=== PATIENT | male | born 1965 | race African-American/Black ===

== ENCOUNTER 2017-02-21 21:37 | Inpatient (IN) | payer OTHER ==
--- NOTE | ~2017-02-21 | PN ---
Unit #: [id number] #: [id number] Patient: GIRISH HOLDEN [id number] [facility] [address] [place] [address] [id number] MR#: [id number] NAME: GIRISH HOLDEN ROOM: [facility] Age: 51 Sex: M Admission Date: 02/21/2017 : 1965 Attending Physician: Hernandez Dan M.D. Admitting Physician: Hernandez Dan M.D. Primary Care Physician: Chucho Ceron PROGRESS NOTES DATE 02/22/2017 DISCUSSION Girish is a 51-year-old male seen on 02/22/2017. The patient interviewed, chart reviewed. Obtained information from nursing staff. The patient's vital signs 98.4, 72, 18, 158/103. Height 5 feet 11 inches. The patient still reporting anxious, nervous, tremors, withdrawn, isolative. Complete review of systems unremarkable. MENTAL STATUS EXAMINATION General appearance, the patient dressed casually in hospital attire. Attention span and concentration fair. Oriented to place and person. Mood and affect sad, dysphoric. Speech monotone. Thought process concrete. The patient denied any thoughts of harming self or others but guarded. Recent and remote memory poor. Insight and judgement poor. DIAGNOSES 1. Cocaine use disorder. 2. Severe alcohol use disorder. 3. Severe mood disorder NOS. ASSESSMENT/PLAN Advise to continue with current medication and therapeutic protocol. We will monitor response to medication and make further adjustment of medication. Dictated by... Miguel Phipps/anahy TD: 02/24/2017 04:26 JOB #: [id number] Unit #: [id number] #: [id number] Patient: GIRISH HOLDEN PROGRESS NOTES Page 1 of 1 X Hernandez Dan MD X PROGRESS NOTE
--- NOTE | ~2017-02-21 | DS ---
Unit #: [id number] #: [id number] Patient: RENE HOLDEN [id number] [facility] [address] [place] [address] [id number] MR#: [id number] NAME: RENE HOLDEN ROOM: [facility] Age: 51 Sex: M Admission Date: 02/21/2017 : 1965 Discharge Date: 02/24/2017 Attending Physician: Hernandez Dan M.D. Primary Care Physician: Nancy Soto A.P.R.N. DISCHARGE SUMMARY REASON FOR ADMISSION Detox, depression. DIAGNOSTIC STUDIES LABORATORY RESULTS: Remarkable for urine drug screen positive for cocaine. HOSPITAL COURSE The patient was admitted to inpatient unit on 02/21/2017 and discharged on 02/24/2017. The patient was treated on the inpatient unit with group therapy, individual therapy, medication management, detox protocol, and detox monitoring. The patient responded well with the above modalities of treatment. Subsequently, the patient was discharged with a plan to follow up in outpatient program. DISCHARGE MEDICATIONS Trazodone 100 mg at bedtime for sleep, BuSpar 15 mg t.i.d. for anxiety, Zoloft 100 mg daily for depression, Neurontin 300 mg t.i.d. for anxiety, Atarax 50 mg once daily for EPS symptom. DISCHARGE DIAGNOSES Psychiatric: 1. Cocaine use disorder, severe, F14.20. 2. Alcohol use disorder, severe, F10.20. 3. Major depressive disorder, recurrent, severe. Secondary diagnosis: Deferred. Medical diagnosis: Hypertension. Stressors: Psychosocial stressors. DISCHARGE INSTRUCTIONS The patient to follow up in outpatient clinic as per web content & social media manager. CONDITION ON DISCHARGE The patient was pleasant and cooperative. Denied any psychotic symptom or any suicidal ideation. PROGNOSIS Guarded. DIET AND ACTIVITY As tolerated. Unit #: [id number] #: [id number] Patient: RENE HOLDEN Dictated by... Miguel Phipps/vincent TD: 02/26/2017 05:10 JOB #: [id number] DISCHARGE SUMMARY Page 1 of 1 X Hernandez Dan MD X DISCHARGE SUMMARY
--- NOTE | ~2017-02-21 | HP ---
Unit #: [id number] #: [id number] Patient: GIRISH HOLDEN [id number] [facility] [address] [place] [address] [id number] MR#: [id number] NAME: GIRISH HOLDEN ROOM: [facility] Age: 51 Sex: M Admission Date: 02/21/2017 : 1965 Attending Physician: Hernandez Dan M.D. Admitting Physician: Hernandez Dan M.D. Primary Care Physician: Nancy Soto A.P.R.N. HISTORY AND PHYSICAL HISTORY OF PRESENT ILLNESS Girish is a 51-year-old male admitted on 02/22/2017 to [facility] for detox from alcohol and cocaine. PAST MEDICAL HISTORY Hypertension and sciatic nerve pain. PAST SURGICAL HISTORY None documented. SOCIAL HISTORY Smokes one pack of cigarettes daily and reports binge alcohol use and daily cocaine use. He is currently single and living alone. FAMILY HISTORY Noncontributory. REVIEW OF SYSTEMS CONSTITUTIONAL: No fever or chills. HEENT: Denies any sore throat, ear pain or runny nose. CARDIOVASCULAR: Denies chest pain, irregular heart rhythm or palpitations. CHEST: Denies shortness of breath or cough. No hemoptysis. GASTROINTESTINAL: Denies nausea, vomiting, diarrhea or chronic constipation. ENDOCRINE: Denies history of increased thirst or urination. No recent significant weight loss or gain. GENITOURINARY: Denies dysuria, frequency, or hematuria. SKIN: Denies any rashes. HEMATOLOGIC: Denies history of increased bleeding or bruising. MUSCULOSKELETAL: Denies any hot, swollen joints. No generalized muscle pain. NEUROLOGIC: Denies problems with vision or speech. No frequent, severe headaches. No numbness, tingling or weakness in any extremities. Denies loss of bladder or bowel control. CURRENT MEDICATIONS 1. Hydroxyzine 2. Hydrochlorothiazide 3. Metoprolol 4. BuSpar 5. Amlodipine Unit #: [id number] #: [id number] Patient: GIRISH HOLDEN 6. Zoloft 7. Gabapentin ALLERGIES Seafood PHYSICAL EXAMINATION GENERAL: Alert, oriented, in no acute distress. VITAL SIGNS: Blood pressure 143/97, heart rate 86, respirations 16. HEIGHT: 5 foot 11 inches. WEIGHT: 175 pounds. SKIN: Warm and dry without rash or lesion. HEENT: Normocephalic. TMs not viewed. Oral and nasal passages clear. Conjunctivae clear. PERRLA. EOMs intact. NECK: Supple without lymphadenopathy or thyromegaly. HEART: Regular rate and rhythm without murmur. LUNGS: Clear. ABDOMEN: Soft, nontender, without masses or hepatosplenomegaly. : Not done. EXTREMITIES: No evidence of cyanosis, clubbing or edema. Moves all without focal deficit. NEUROLOGICAL: Grossly within normal limits. Cranial Nerves: II: Visual seth are intact. III, IV AND : Extraocular movements are intact. Pupils are equal, round and reactive to light. V: Facial sensation is grossly normal. VII: Facial movements and expression are normal. VIII: Auditory acuity grossly intact. IX, X: Uvula is midline. Phonation is normal. XI: Patient shrugs shoulders and turns head normally. XII: Tongue protrudes in the midline. Sensory and Motor Function: Sensory and motor sensation is grossly normal. Motor: moves all extremities well. Coordination: Gait is normal. Deep Tendon Reflexes: Intact. IMPRESSION 1. Psychiatric admission. 2. Hypertension. 3. Sciatic nerve pain. RECOMMENDATIONS Psychiatric, per psychiatrist. MEDICAL: I see no contraindications to participating in facility's activities. MEDICAL PROGNOSIS Good. MEDICAL CONDITION Stable. Dictated by... Lisa BeckPDeborah Unit #: [id number] #: [id number] Patient: GIRISH HOLDEN MISSY/anahy TD: 02/22/2017 19:21 JOB #: [id number] HISTORY AND PHYSICAL Page 1 of 1 X OSCAR GREENE APRN HISTORY AND PHYSICAL
--- NOTE | ~2017-02-21 | PN ---
Unit #: [id number] #: [id number] Patient: GIRISH HOLDEN [id number] [facility] [address] [place] [address] [id number] MR#: [id number] NAME: GIRISH HOLDEN ROOM: [facility] Age: 51 Sex: M Admission Date: 02/21/2017 : 1965 Attending Physician: Hernandez Dan M.D. Admitting Physician: Hernandez Dan M.D. Primary Care Physician: Chucho Ceron PROGRESS NOTES DATE OF SERVICE: 02/23/2017 DISCUSSION Girish Holden is a 51-year-old male. The patient interviewed, chart reviewed, and obtained information from nursing staff. The patient was compliant and cooperative, isolative, guarded, able to maintain safe behavior. Vital signs; temperature 98.4, pulse 82, blood pressure 144/89. The patient currently having withdrawal symptom, but mood sad and dysphoric, and tolerating medication fairly well. REVIEW OF SYSTEMS Complete review of systems is unremarkable. MENTAL STATUS EXAMINATION General appearance, the patient dressed casually. Attention span and concentration, fair. Oriented in place and person. Mood and affect were sad and dysphoric. Speech, monotone. Thought process, concrete. The patient denied any thoughts of harming self or others or any psychotic symptom. Recent and remote memory, poor. Insight and judgment, poor. DIAGNOSIS Mood disorder, not otherwise specified. ASSESSMENT/PLAN Advised to continue with current medication and therapeutic protocol. We will monitor response to medication and make further adjustment of medication if needed. Dictated by... Miguel Phipps/vincent TD: 02/25/2017 06:11 JOB #: [id number] Unit #: [id number] #: [id number] Patient: GIRISH HOLDEN PROGRESS NOTES Page 1 of 1 X Hernandez Dan MD PROGRESS NOTE
--- NOTE | ~2017-02-21 | PA ---
Unit #: [id number] #: [id number] Patient: GIRISH TOLEDO [id number] [facility] [address] [place] [address] [id number] I MR#: [id number] NAME: GIRISH TOLEDO ROOM: [facility] Age: 51 Sex: M Admission Date: 02/21/2017 : 1965 Date of Assessment: Attending Physician: Hernandez Dan M.D. Admitting Physician: Hernandez Dan M.D. Primary Care Physician: Nancy Soto A.P.R.N. PSYCHIATRIC ASSESSMENT INFORMANTS The patient reliability, fair informant and chart reliability, good. CHIEF COMPLAINT Detox and depression. HISTORY OF PRESENT ILLNESS Mr. Girish Toledo is a 51-year-old male, seen on . The patient presented with the above-mentioned complaint. The patient has a history of inpatient treatment at [facility], and [facility] for substance abuse and anxiety. The patient reported smoking 200 to 300 dollars worth of crack cocaine and drinking fifth of whiskey or bourbon. The patient reported last use of crack cocaine was at 4 this morning and last drink of bourbon was 9 a.m. The patient reported history of depression and anxiety. The patient also reported taking Klonopin for anxiety. The patient reported his psychiatrist has taken him off from the medication. 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 The patient reports that the longest period of sobriety was 5 years. Denied any suicidal or homicidal ideation, but feeling sad, depressed, and anxious. Denied any psychotic symptom. Needing inpatient admission at this time for psychiatric stabilization. PAST PSYCHIATRIC HISTORY Remarkable for history of previous treatment at [facility], and [facility] in the past. FAMILY HISTORY AND SOCIAL HISTORY The patient's family history is remarkable for history of alcohol abuse in mother. No history of any legal charges or abuse, but in the past history of first-degree assault charge. MEDICAL HISTORY Remarkable for hypertension. Musculoskeletal; muscle strength and tone, no atrophy or abnormal movement. Gait normal. MEDICATION HISTORY None. ALLERGIES No known drug allergies. SUBSTANCE ABUSE HISTORY Unit #: [id number] #: [id number] Patient: GIRISH TOLEDO The patient reported alcohol use, age of onset 17 and crack cocaine, age of onset 17. The patient reported currently having nervousness, sleep problem, shaking, depressed mood, and history of blackout. No history of any HIV or hepatitis. History of withdrawal symptoms. No history of any IV drug use. REVIEW OF SYSTEMS HEENT: Eyes, clear. Ears, nose, mouth, and throat; clear. CARDIOVASCULAR: Unremarkable. RESPIRATORY: Unremarkable. GI: Unremarkable. : Unremarkable. SKIN: Unremarkable. LYMPH NODE: Unremarkable. NEUROLOGIC: Unremarkable. ENDOCRINE: Unremarkable. HEMATOLOGIC: Unremarkable. ALLERGIC/IMMUNOLOGIC: Unremarkable. MUSCULOSKELETAL: Muscle strength and tone, no atrophy or abnormal movement. Gait normal. MENTAL STATUS EXAMINATION CONSTITUTIONAL: Measurement of vital signs; temperature 98.4, heart rate 75, respiratory rate 18, oxygen saturation 100%, blood pressure 141/99, height 5 feet 11 inches, and weight 175 pounds. GENERAL APPEARANCE: The patient dressed casually. The patient's hygiene and grooming, fair. The patient did not show any facial deformity. MUSCULOSKELETAL: Please see above. PSYCHIATRIC EXAMINATION Description of speech; regular rate, normal volume, normal articulation, coherent, and spontaneous. Description of thought process, goal directed. Description of association, intact. Description of abnormal psychotic thinking; the patient denied any hallucinations or delusions, but mood lability and substance abuse. Description of the patient's judgment: Concerning everyday activity, poor. Social situation, poor. Concerning psychiatric condition, poor. Complete mental status examination; oriented in time, place, and person. Recent and remote memory, fair. Attention span and concentration, fair. Language, able to name object and repeat phrases. Fund of knowledge, aware of current event and passive vocabulary intact. Mood and affect, sad and dysphoric. Insight and judgment, fair to poor. ASSETS AND LIABILITIES Assets, the patient is articulate and able to take care of his ADL. Liability, history of depression and substance abuse. ADMITTING DIAGNOSES Psychiatric: Cocaine use disorder, severe, F14.20; alcohol use disorder, severe, F10.20; and mood disorder, not otherwise specified, F32.9. Secondary diagnosis: Deferred. Medical diagnosis: Hypertension. Stressors: Psychosocial stressors. Unit #: [id number] #: [id number] Patient: GIRISH TOLEDO PSYCHIATRIC PLAN AND TREATMENT GOAL AND DISCHARGE PLAN 1. Advised to admit the patient on the inpatient unit. Provide safe, supportive, and structured environment. 2. Ordered labs; CBC, CMP, UA, and UDS. 3. Detox precaution and detox protocol. The patient to attend all the programing. If needed, consider medication for depression. The patient to attend all the programing, group therapy, individual therapy, chemical dependency group, and family therapy. TREATMENT GOAL To attain euthymic mood, gain insight into his problem, and learn coping skills. DISCHARGE PLAN Plan to stabilize the patient and consider followup in outpatient program. ESTIMATED LENGTH OF STAY 3 to 5 days. Dictated by... Hernandez Dan M.D. ELVIA/vincent TD: 02/22/2017 18:07 JOB #: [id number] PSYCHIATRIC ASSESSMENT Page 1 of 1 X Hernandez Dan MD X PSYCHIATRIC ASSESSMENT
[~2017-02-21 21:37] MED LIST: FLEXERIL10 MG PO; HYDROCHLOROTH12.5 M1; KLONOPIN1 MG PO; NORVASC10 MG PO; ROBAXIN 750750 M1 PO; TOPROL XL 50 MG50 MG PO; VOLTAREN75 MG PO
[2017-02-22 11:17] LABS: URINE SOURCE CLEAN CATCH
[2017-02-22 12:00] LABS: ALBUMIN SERUM 3.2 g/dL (3.5-5.0); BILIRUBIN,TOTAL 0.4 mg/dL (0.2-2.0); BUN/CREATININE RATIO 18.75; CALCIUM SERUM 8.7 mg/dL (8.4-10.2); CREATININE SERUM 0.8 mg/dL (0.6-1.4); GLOM FILT RATE Estimated 120.8 mL/min (>60); POTASSIUM 3.8 mmol/L (3.5-5.1); PROTEIN TOTAL SERUM 6.4 g/dL (6.0-8.3)
[2017-02-22 12:09] LABS: URINE APPEARANCE CLEAR; URINE BILIRUBIN NEG (NEG); URINE BLOOD NEG (NEG); URINE COLOR YELLOW; URINE GLUCOSE NEG (NEG); URINE KETONE NEG (NEG); URINE LEUKOCYTE ESTERASE NEG (NEG); URINE NITRATE NEG (NEG); URINE PROTEIN NEG (NEG); URINE SPECIFIC GRAVITY 1.003 (1.003-1.035); URINE UROBILINOGEN 0.2 MG/DL (NEG)
[2017-02-22 12:19] LABS: AMPHETAMINE NEG (NEG); BARBITURATES NEG (NEG); BENZODIAZEPINES NEG (NEG); COCAINE POS (NEG); MARIJUANA NEG (NEG); OPIATES NEG (NEG); TRICYCLIC ANTIDEPRESSANTS NEG (NEG); U METHADONE NEG (NEG)
[2017-02-23 11:14] LABS: BASOPHIL% 0.4 % (0-2.5); EOSINOPHIL# 0.2 X10e3 (0-0.7); EOSINOPHIL% 4.1 % (0.0-7.0); HEMATOCRIT 41.8 % (38.0-50.0); HEMOGLOBIN 13.7 gm/dL (13.0-16.0); LYMPHOCYTE# 1.3 X10e3 (1.0-3.5); LYMPHOCYTE% 28.8 % (17.0-45.0); MEAN CELL VOLUME 85.1 FL (83-96); MEAN CORPUSCULAR HEMOGLOBIN 27.8 PG (28-34); MEAN CORPUSCULAR HGB CONC 32.6 g/dL (30-36); MEAN PLATELET VOLUME 7.6 FL (6.5-11.5); MONOCYTE# 0.5 X10e3 (0-1.0); MONOCYTE% 11.1 % (3.0-12.0); NEUTROPHIL# 2.4 X10e3 (1.5-7.1); NEUTROPHIL% 55.6 % (40-75); PLATELET COUNT 227 X10e3 (140-420); RED BLOOD COUNT 4.92 X10e (3.90-5.60); RED CELL DISTRIBUTION WIDTH 15.4 % (11.0-15.5); WHITE BLOOD COUNT 4.4 X10e3 (4.0-10.5)
[2017-02-23 11:30] LABS: DIFF IND NO
[2017-02-23 11:59] LABS: THYROID STIMULATING HORMONE 0.56 uIU/ml (0.34-5.60)
[2017-02-23 12:06] LABS: FREE THYROXIN (T4) 0.83 ng/dL (0.58-1.64)
== END 2017-02-24 11:35 | disposition home or self-care (01) | DRG 897 ==
LOC: P1E 21:37
PROVIDERS: Psychiatry & Neurology Psychiatry
PROC: HZ2ZZZZ Detoxification Services for Substance Abuse Treatment (ICD-10-PCS; principal; 2017-02-21)
DX: F14.20 Cocaine dependence, uncomplicated (principal); F33.2 Major depressive disorder, recurrent severe without psychotic features; F10.20 Alcohol dependence, uncomplicated; F39 Unspecified mood [affective] disorder; F41.9 Anxiety disorder, unspecified; F17.210 Nicotine dependence, cigarettes, uncomplicated; I10 Essential (primary) hypertension
CPT/HCPCS: 80053; 80307; 81003; 84439; 84443; 85025; 86592

== ENCOUNTER 2017-03-12 17:24 | Inpatient (IN) | payer OTHER ==
--- NOTE | ~2017-03-12 | PA ---
Unit #: [id number] #: [id number] Patient: RENE HOLDEN [id number] [facility] [address] [place] [address] [id number] MR#: [id number] NAME: RENE HOLDEN ROOM: 84 Age: 51 Sex: M Admission Date: 03/12/2017 : 1965 Date of Assessment: Attending Physician: Hernandez Dan M.D. Admitting Physician: Hernandez Dan M.D. Primary Care Physician: Nancy Soto A.P.R.N. PSYCHIATRIC ASSESSMENT INFORMANTS The patient reliability, fair informant and chart reliability, good. CHIEF COMPLAINT Substance abuse and depression. HISTORY OF PRESENT ILLNESS Mr. George is a 51-year-old male, seen on with the above-mentioned complaint. The patient presented with using 1 g of crack cocaine since 10/2016. The patient reported one gallon of beer and whiskey daily since 10/2016. The patient reported high anxiety, irritability, sleep problem, and nervousness. The patient reported "I cannot keep going like this, it is getting deeper." Denied any suicidal or homicidal ideation. Denied any psychotic symptom, but reported feeling sad and depressed. The patient reported using alcohol, age of onset 17; marijuana, age of onset 17; and amphetamine, age of onset 38. The patient reported longest period of sobriety 5 years. The patient reported last period of sobriety in 08/2016. The patient denied any blackouts or IV drug use or HIV or hepatitis. Reported withdrawal symptoms such as tremors, sleeping problem, poor concentration, poor appetite, nervousness, and irritability. The patient needing inpatient admission at this time for psychiatric stabilization. PAST PSYCHIATRIC HISTORY Remarkable for history of [facility] treatment in 01/2017. FAMILY HISTORY AND SOCIAL HISTORY The patient's family history is remarkable for history of alcohol abuse in mother. No history of any legal problems or charges or abuse. MEDICAL HISTORY Remarkable for history of hypertension. Musculoskeletal; muscle strength and tone, no atrophy or abnormal movement. Gait normal. MEDICATION HISTORY None. ALLERGIES No known drug allergies. SUBSTANCE ABUSE HISTORY Please see above. Unit #: [id number] #: [id number] Patient: RENE HOLDEN REVIEW OF SYSTEMS HEENT: Eyes, clear. Ears, nose, mouth, and throat; clear. CARDIOVASCULAR: Unremarkable. RESPIRATORY: Unremarkable. GI: Unremarkable. : Unremarkable. SKIN: Unremarkable. LYMPH NODE: Unremarkable. NEUROLOGIC: Unremarkable. ENDOCRINE: Unremarkable. HEMATOLOGIC: Unremarkable. ALLERGIC/IMMUNOLOGIC: Unremarkable. MUSCULOSKELETAL: Muscle strength and tone, no atrophy or abnormal movement. Gait normal. MENTAL STATUS EXAMINATION CONSTITUTIONAL: Measurement of vital signs; temperature 98.3, heart rate 62, respiratory rate 20, 100 oxygen saturation, and blood pressure 129/92. Height 5 feet 11 inches and weight 175 pounds. GENERAL APPEARANCE: The patient dressed casually. The patient did not show any facial deformity. MUSCULOSKELETAL: Please see above. PSYCHIATRIC EXAMINATION Description of speech; regular rate, normal volume, normal articulation, coherent, and spontaneous. Description of thought process, goal directed. Description of association, intact. Description of abnormal psychotic thinking; the patient denied any hallucinations or delusions, but sad, depressed, and substance abuse. Description of the patient's judgment: Concerning everyday activity, poor. Social situation, poor. Concerning psychiatric condition, poor. Complete mental status examination; oriented in time, place, and person. Recent and remote memory, fair. Attention span and concentration, fair. Language, able to name object and repeat phrases. Fund of knowledge, aware of current event and passive vocabulary intact. Mood and affect, sad and dysphoric. Insight and judgment, fair to poor. ASSETS AND LIABILITIES Assets, the patient is articulate and able to take care of his ADL. Liability, history of substance abuse. ADMITTING DIAGNOSES Psychiatric: Cocaine use disorder, severe, F14.20; alcohol use disorder, severe, F10.20; and mood disorder, not otherwise specified, F32.9. Secondary diagnosis: Deferred. Medical diagnosis: Hypertension. Stressors: Psychosocial stressors. PSYCHIATRIC PLAN AND TREATMENT GOAL AND DISCHARGE PLAN 1. Advised to admit the patient on the inpatient unit. Provide safe, supportive, and structured environment. 2. Ordered labs; CBC, CMP, UA, and UDS. 3. Detox protocol and detox monitoring. The patient to attend all the programing. Plan to continue with medication. If needed, consider Unit #: [id number] #: [id number] Patient: RENE HOLDEN medication for depression. The patient to attend all the programing including group therapy, individual therapy, and chemical dependency group. TREATMENT GOAL To attain euthymic mood, gain insight into his problem, and learn coping skills. DISCHARGE PLAN Plan to stabilize the patient and consider followup in outpatient program. ESTIMATED LENGTH OF STAY 5 days. Dictated by... Miguel Phipps/vincent TD: 03/13/2017 17:03 JOB #: [id number] PSYCHIATRIC ASSESSMENT Page 1 of 1 X Hernandez Dan MD X PSYCHIATRIC ASSESSMENT
--- NOTE | ~2017-03-12 | PN ---
Unit #: [id number] #: [id number] Patient: RENE HOLDEN [id number] [facility] [address] [place] [address] [id number] MR#: [id number] NAME: RENE HOLDEN ROOM: [facility] Age: 51 Sex: M Admission Date: 03/12/2017 : 1965 Attending Physician: Hernandez Dan M.D. Admitting Physician: Hernandez Dan M.D. Primary Care Physician: Nancy Soto A.P.R.N. [facility] PROGRESS NOTES DATE OF SERVICE: 03/16/2017 IGOR Stout is a 51-year-old male, seen on 03/16/2017. The patient interviewed, chart reviewed, and obtained information from nursing staff. The patient's vital signs stable. The patient was compliant and cooperative. Mood was sad, dysphoric, flat affect, but reported overall making progress. The patient was seclusive, isolative, guarded. No side effects from medication. Complete review of systems unremarkable. MENTAL STATUS EXAMINATION General appearance, the patient dressed casually. Attention span and concentration, fair. Oriented in place and person. Mood and affect, sad and dysphoric. Speech, monotone. Thought process, concrete. The patient denied any thoughts of harming self or others or any psychotic symptom. Recent and remote memory, poor. Insight and judgment, poor. DIAGNOSES 1. Mood disorder, not otherwise specified. 2. Alcohol use disorder, moderate. ASSESSMENT AND PLAN Advised to continue with current medications. If needed, consider further adjustment of medications. The patient is on Lopressor, Celexa, Vistaril, and trazodone. Dictated by... Hernandez Dan M.D. SZTruong/nadeeml TD: 03/17/2017 19:59 JOB #: [id number] Unit #: [id number] #: [id number] Patient: RENE HOLDEN PEAPRATIBHA PROGRESS NOTES Page 1 of 1 X Hernandez Dan MD PROGRESS NOTE
--- NOTE | ~2017-03-12 | A ---
[facility] Nutrition Therapy DATE: 03/14/17 Patient: RENE NAVIN Physician: BRI Address: [address] [place] [address] [address] Room/Bed: [address], Zip: [place] [address] Admit Date: 03/12/17 Date of : [birth year] Height: 5 11 Weight: 174 79.3786 NUTRITIONAL ASSESSMENT: REASON: 1 point malnutrition risk score re: unintentional weight loss Admitting Dx: 51 y/o male admitted for ETOH/cocaine detox PMH: PSA, HTN, sciatica, 1 ppd smoker Anthropometrics: Ht: 71", Wt: 175 lbs, BMI: 24 (normal), 102% IBW Labs: WNL Meds: Loperamide, Phenergan/Zofran, Thiamine, Folic acid, MVI, Milk of Mg, Mag-al, Balance B-50, Hydrochlorothiazide I/O & Bowel function: Constipation noted Assessment: Chart reviewed, events noted. Patient undergoing ETOH and cocaine detox. He is single and unemployed. He is on a regular diet with no caffeine. During needs assessment he reported fair appetite with a 20 lb weight loss within "months," however his weight since previous admission on 02/22/17 is the same, so I'm not sure if he was re-weighed this admission. Per past weight of 189 lbs on 04/16/16 a weight loss of approx. 14 lbs is reflected in almost 1 year. During patient's last admission in January he answered no to any unintentional weight loss. Appetite is now fair-good, BMI is normal and 102% IBW. See RD recs below. Dx: Unintentional weight loss r/t drug abuse AEB 1 point malnutrition risk score. Intervention: Ensure BID if PO < 50%, weight q 3 days Monitoring, Evaluation and Goals: 1. PO intake 50-100% of meals. 2. Prevent unintentional weight loss. 3. Promote regular BM's. Recommendations: 1. Continue regular diet, no caffeine per MD. Appreciate staff to encourage adequate meal intake. Encourage fluids. 2. Continue bowel regimen noting constipation. [facility] Nutrition Therapy DATE: 03/14/17 Patient: RENE HOLDEN Physician: BRI Address: [address] Room/Bed: [facility], Zip: [place] [address] Admit Date: 03/12/17 Date of : [birth year] Height: 5 11 Weight: 174 79.3786 3. If PO intake is < 50% of meals please order Ensure Plus BID (available in chocolate/vanilla, requires MD order). 4. Please weigh q 3 days for monitoring purposes noting weight loss. Please consult RD if weight begins trending down. 5. Please consult with any further nutritional needs. Mild nutrition risk Respectfully, Kim Weber, NORY, LD [employer] [facility] cc: client file
--- NOTE | ~2017-03-12 | PN ---
Unit #: [id number] #: [id number] Patient: GIRISH HOLDEN [id number] [facility] [address] [place] [address] [id number] MR#: [id number] NAME: GIRISH HOLDEN ROOM: [facility] Age: 51 Sex: M Admission Date: 03/12/2017 : 1965 Attending Physician: Hernandez Dan M.D. Admitting Physician: Hernandez Dan M.D. Primary Care Physician: Nancy Soto A.P.R.N. [facility] PROGRESS NOTES DATE 03/15/2017 DISCUSSION Girish is a 51-year-old male, seen on 03/15/2017. The patient interviewed, chart reviewed, and obtained information from the nursing staff. The patient was compliant and cooperative. Mood sad and dysphoric, flat affect, and guarded. The patient denied any complaints. REVIEW OF SYSTEMS Complete review of systems unremarkable. MENTAL STATUS EXAMINATION General appearance: Patient dressed casually. Attention span and concentration, fair. Oriented to time, place, and person. Mood and affect, sad and dysphoric. Speech, monotone. Thought process, concrete. The patient denied any thoughts of harming self or others. Recent and remote memory, poor. Insight and judgment, poor. DIAGNOSES 1. Cocaine use disorder, severe. 2. Alcohol use disorder, severe. 3. Mood disorder, NOS. ASSESSMENT/PLAN Advised to continue with the current medication and therapeutic protocol and if needed consider further adjustment of medication. Dictated by... Miguel Phipps/steph TD: 03/18/2017 06:08 JOB #: [id number] Unit #: [id number] #: [id number] Patient: GIRISH HOLDEN PROGRESS NOTES Page 1 of 1 X Hernandez Dan MD PROGRESS NOTE
--- NOTE | ~2017-03-12 | PN ---
Unit #: [id number] #: [id number] Patient: RENE HOLDEN [id number] [facility] [address] [place] [address] [id number] MR#: [id number] NAME: RENE HOLDEN ROOM: [facility] Age: 51 Sex: M Admission Date: 03/12/2017 : 1965 Attending Physician: Hernandez Dan M.D. Admitting Physician: Hernandez Dan M.D. Primary Care Physician: Chucho Ceron PROGRESS NOTES DATE 03/14/2017 DISCUSSION Mr. Stout is a 51-year-old male seen on 03/14/2017. Patient interviewed. Chart reviewed. Obtained information from nursing staff. Patient tolerating medication fairly well. Mood sad, depressed, flat affect, sad, anxious, nervous, withdrawn, isolative. Patient reports still having withdrawal symptoms. Patient was admitted for cocaine use disorder, alcohol use disorder. Patient's vital signs 98.3, 62, 129/92. Complete review of system unremarkable. MENTAL STATUS EXAMINATION General appearance, patient dressed casually. Attention span, concentration fair. Oriented in place and person. Mood and affect sad, dysphoric. Speech monotone. Thought process concrete. Patient denied any thoughts of harming self or others but guarded, seclusive, isolative. Hygiene and grooming poor, withdrawn, flat, sad, dysphoric. Insight and judgement fair to poor. DIAGNOSES 1. Cocaine use disorder, severe. 2. Alcohol use disorder, severe. ASSESSMENT/PLAN Advised to continue with the current medication and therapeutic protocol. If needed, consider further adjustment of medication. Dictated by... Miguel Phipps/donna TD: 03/17/2017 16:14 JOB #: [id number] Unit #: [id number] #: [id number] Patient: RENE HOLDEN PROGRESS NOTES Page 1 of 1 X Hernandez Dan MD PROGRESS NOTE
--- NOTE | ~2017-03-12 | PN ---
Unit #: [id number] #: [id number] Patient: RENE HOLDEN [id number] [facility] [address] [place] [address] [id number] I MR#: [id number] NAME: RENE HOLDEN ROOM: [facility] Age: 51 Sex: M Admission Date: 03/12/2017 : 1965 Attending Physician: Hernandez Dan M.D. Admitting Physician: Hernandez Dan M.D. Primary Care Physician: Chucho Ceron PROGRESS NOTES DATE OF SERVICE: 03/13/2017 IGOR Holden is a 51-year-old male, seen on 03/13/2017. The patient interviewed, chart reviewed, and obtained information from nursing staff. The patient was compliant and cooperative. Mood was sad, dysphoric, flat affect, guarded. The patient reported feeling sad, depressed, anxious, having trouble falling asleep and staying asleep. The patient was started on Celexa 20 mg daily, Vistaril 50 mg t.i.d., and trazodone 75 mg at bedtime. Complete review of systems unremarkable. MENTAL STATUS EXAMINATION General appearance, the patient dressed casually. Attention span and concentration, fair. Oriented in place and person. Mood and affect, sad and dysphoric. Speech, monotone. Thought process, concrete. The patient denied any thoughts of harming self or others or any psychotic symptom. Recent and remote memory, poor. Insight and judgment, poor. DIAGNOSES 1. Cocaine use disorder, moderate. 2. Alcohol use disorder, severe. 3. Mood disorder, not otherwise specified. ASSESSMENT AND PLAN Advised to continue with current medication and therapeutic protocol. If needed, consider further adjustment of medication. Dictated by... Miguel Phipps/vincent TD: 03/13/2017 21:51 JOB #: [id number] Unit #: [id number] #: [id number] Patient: RENE HOLDEN PROGRESS NOTES Page 1 of 1 X Hernandez Dan MD PROGRESS NOTE
--- NOTE | ~2017-03-12 | DS ---
Unit #: [id number] #: [id number] Patient: RENE HOLDEN [id number] [facility] [address] [place] [address] [id number] I MR#: [id number] NAME: RENE HOLDEN ROOM: [facility] Age: 51 Sex: M Admission Date: 03/12/2017 : 1965 Discharge Date: 03/17/2017 Attending Physician: Hernandez Dan M.D. Primary Care Physician: Nancy Soto A.P.R.N. DISCHARGE SUMMARY REASON FOR ADMISSION Substance abuse. DIAGNOSTIC STUDIES LABORATORY RESULTS: Remarkable for urine drug screen positive for cocaine. HOSPITAL COURSE The patient was admitted to inpatient unit on 03/12/2017 and discharged on 03/17/2017. The patient was treated on the inpatient unit with group therapy, individual therapy, and medication management. The patient responded well with the above modalities of treatment. Subsequently, the patient was discharged with a plan to follow up in outpatient clinic. DISCHARGE MEDICATIONS None. DISCHARGE DIAGNOSES Psychiatric: 1. Cocaine use disorder, severe, F14.20. 2. Alcohol use disorder, severe, F10.20. 3. Mood disorder, not otherwise specified, F32.9. Secondary diagnosis: Deferred. Medical diagnosis: Hypertension. Stressors: Psychosocial stressors. DISCHARGE INSTRUCTIONS The patient is to follow up in outpatient clinic as per manager social work. CONDITION ON DISCHARGE The patient was pleasant and cooperative. Denied any psychotic symptom or any suicidal ideation. PROGNOSIS Guarded. DIET AND ACTIVITY As tolerated. Dictated by... Hernandez Dan M.D. Unit #: [id number] #: [id number] Patient: RENE HOLDEN SZC/modl TD: 03/18/2017 12:41 JOB #: [id number] DISCHARGE SUMMARY Page 1 of 1 X Hernandez Dan MD X DISCHARGE SUMMARY
--- NOTE | ~2017-03-12 | HP ---
Unit #: [id number] #: [id number] Patient: GIRISH HOLDEN [id number] [facility] [address] [place] [address] [id number] I MR#: [id number] NAME: GIRISH HOLDEN ROOM: [facility] Age: 51 Sex: M Admission Date: 03/12/2017 : 1965 Attending Physician: Hernandez Dan M.D. Admitting Physician: Hernandez Dan M.D. Primary Care Physician: Nancy Soto A.P.R.N. HISTORY AND PHYSICAL Girish is a 51 year old admitted to [facility] because of his polysubstance abuse which includes alcohol and cocaine. Patient was seen and H and P dated 02/22/17 was reviewed. This is current. No changes. Please see H and P dated 02/22/17. Dictated by... Melody Guzmán P.A.-C. for Miguel Roman/donna TD: 03/13/2017 18:30 JOB #: [id number] HISTORY AND PHYSICAL Page 1 of 1 X Melody Guzmán HISTORY AND PHYSICAL
--- NOTE | ~2017-03-12 | CO ---
Unit #: [id number] #: [id number] Patient: RENE HOLDEN [id number] [facility] [address] [place] [address] [id number] I MR#: [id number] NAME: RENE HOLDEN ROOM: [facility] Age: 51 Sex: M Admission Date: 03/12/2017 : 1965 Attending Physician: Hernandez Dan M.D. Primary Care Physician: Nancy Soto A.P.R.N. Consultation Date: 03/16/2017 CONSULTATION REPORT ORDERING PROVIDER Dr. Dan. REASON FOR CONSULT Tachycardia. SUBJECTIVE The patient reports that he has a history of tachycardia and has been on metoprolol in the past; however, when he came to [facility], he cannot remember what the name of the medication was and therefore has not been on it since being admitted. He denies any chest pain or shortness of breath. He does report a history of crack cocaine use. OBJECTIVE Heart rate noted to be approximately 100. Previous history and physicals were reviewed and the patient was in fact on metoprolol 50 b.i.d. on prior admission. The remainder of his examination was unremarkable. ASSESSMENT Tachycardia. PLAN To put the patient back on his metoprolol 50 b.i.d. Dictated by... Mary Jo Pelaez A.P.R.N. for Miguel Roman/vincent TD: 03/16/2017 14:02 JOB #: [id number] Unit #: [id number] #: [id number] Patient: RENE HOLDEN CONSULTATION REPORT Page 1 of 1 X MARY JO PELAEZ APRN CONSULTATION REPORT
[2017-03-13 12:24] LABS: BASOPHIL% 0.4 % (0-2.5); EOSINOPHIL# 0.2 X10e3 (0-0.7); EOSINOPHIL% 4.8 % (0.0-7.0); HEMATOCRIT 43.2 % (38.0-50.0); HEMOGLOBIN 13.7 gm/dL (13.0-16.0); LYMPHOCYTE# 1.1 X10e3 (1.0-3.5); LYMPHOCYTE% 35.1 % (17.0-45.0); MEAN CELL VOLUME 86.2 FL (83-96); MEAN CORPUSCULAR HEMOGLOBIN 27.4 PG (28-34); MEAN CORPUSCULAR HGB CONC 31.7 g/dL (30-36); MEAN PLATELET VOLUME 8.1 FL (6.5-11.5); MONOCYTE# 0.5 X10e3 (0-1.0); NEUTROPHIL# 1.4 X10e3 (1.5-7.1); NEUTROPHIL% 44.7 % (40-75); PLATELET COUNT 198 X10e3 (140-420); RED BLOOD COUNT 5.01 X10e (3.90-5.60); RED CELL DISTRIBUTION WIDTH 16.2 % (11.0-15.5); WHITE BLOOD COUNT 3.2 X10e3 (4.0-10.5)
[2017-03-13 12:33] LABS: DIFF IND NO
[2017-03-13 12:45] LABS: ALBUMIN SERUM 3.2 g/dL (3.5-5.0); BILIRUBIN,TOTAL 0.7 mg/dL (0.2-2.0); GLOM FILT RATE Estimated 101.3 mL/min (>60); POTASSIUM 4.3 mmol/L (3.5-5.1); PROTEIN TOTAL SERUM 6.3 g/dL (6.0-8.3)
[2017-03-14 10:07] LABS: URINE BILIRUBIN NEG (NEG); URINE BLOOD NEG (NEG); URINE COLOR DK YELLOW; URINE GLUCOSE NEG (NEG); URINE KETONE NEG (NEG); URINE LEUKOCYTE ESTERASE NEG (NEG); URINE NITRATE NEG (NEG); URINE PROTEIN NEG (NEG); URINE SPECIFIC GRAVITY 1.013 (1.003-1.035); URINE UROBILINOGEN 0.2 MG/DL (NEG)
[2017-03-14 10:26] LABS: AMPHETAMINE NEG (NEG); BARBITURATES NEG (NEG); BENZODIAZEPINES NEG (NEG); COCAINE POS (NEG); MARIJUANA NEG (NEG); OPIATES NEG (NEG); TRICYCLIC ANTIDEPRESSANTS NEG (NEG); U METHADONE NEG (NEG)
== END 2017-03-17 13:45 | DRG 897 ==
LOC: P1E 17:24
PROVIDERS: Psychiatry & Neurology Psychiatry
PROC: HZ2ZZZZ Detoxification Services for Substance Abuse Treatment (ICD-10-PCS; principal; 2017-03-12)
DX: F14.20 Cocaine dependence, uncomplicated (principal); F39 Unspecified mood [affective] disorder; I10 Essential (primary) hypertension; F10.20 Alcohol dependence, uncomplicated; F32.9 Major depressive disorder, single episode, unspecified; R00.0 Tachycardia, unspecified
CPT/HCPCS: 80053; 80307; 81003; 85025; 86592